=== PATIENT | female | born 1975 | race Caucasian/White ===

== ENCOUNTER → 2021-03-19 | Outpatient (CLI) | payer OTHER ==
[2021-03-22 00:15] LABS: Beef IgG 12.6 mcg/mL (< 2.0); Cow's Milk IgG 50.2 mcg/mL (< 2.0); Peanut IgG 6.4 mcg/mL (< 2.0); Pork IgG 3.7 mcg/mL (< 2.0); Potato IgG 2.8 mcg/mL (< 2.0); Soybean IgG 4.5 mcg/mL (< 2.0); Tomato IgG 4.4 mcg/mL (< 2.0); Wheat IgG 6.6 mcg/mL (< 2.0)
[2021-03-22 00:16] LABS: Chicken Meat IgG <2.0 mcg/mL (< 2.0); Corn IgG 12.6 mcg/mL (< 2.0)
== END | disposition home or self-care (01) ==
LOC: LABWHC1 15:32
PROVIDERS: ATTEND Otolaryngology
DX: J30.89 Other allergic rhinitis (principal)
CPT/HCPCS: 36415; 86001